=== PATIENT | female | born 1930 | race Caucasian/White ===

== ENCOUNTER → 2016-11-27 | Outpatient (CLI) | payer MEDICARE, OTHER ==
[~2016-11-27] MED LIST: ACIPHEX20 MG; ACTOPLUS MET 151 TA2 PO; ACTOS; ACTOS PLUS PO; ACTOS15 MG PO; ACYCLOVIR200 MG PO; ASPIRINEC PO; AZITHROMYCIN250 MG PO; CEPACOL SORE T1 EAC4 MM; CERTAGEN PO; CHROMAGEN FA1 UDCAP PO; CLONIDINE PO; CRESTOR; CRESTOR PO; CYMBALTA30 MG PO; DARVOCET-N 1001 TAB PO; DICLOFENAC; DICLOFENAC PO; DULOXETINE HCL60 MG PO; FERROUS SULFATE; FISH OIL PO; FLONASE16 GM; FUROSEMIDE40 MG PO; GLUCOTROL PO; GLYNASE; GLYNASE PO; HYDROCODON-ACE1 EAC5; HYDROCODON-ACE1 EAC5 PO; HYDROCODON-ACE1 EAC5 PO/SL; HYDROCODON-ACE1 EAC9 PO; HYDROXYZINE HCL25 M1 PO; JANUVIA50 MG PO; KLOR-CON PO; LANTUS100 U/ML SQ; LANTUS100 U/ML SUBQ; LASIX PO; LIPITOR PO; LISINOPRIL; LISINOPRIL PO; LISINOPRIL5 MG PO; LORTAB 7.5-5001 TAB PO; MAG-OXIDE400 MG PO; MEDROL4 MG/DOSE- PO; METFORMIN; METOPROLOL SUCC25 MG PO; MULTI-VITAMIN1 TAB PO; NEURONTIN300 MG PO; NORCO 5/325 TAB1 TAB; NOVOLOG100 U/ML SQ; OMEPRAZOLE20 M1 PO; OXYGEN NS; PERCOCET 5-3251 TAB PO; POTASSIUM CHLO10 ME1 PO; PREDNISONE PO; PRILOSEC PO; PROTONIX PO; ROBAXIN 750750 MG PO; ROBAXIN PO; SIMVASTATIN20 MG PO; VESICARE PO; ZETIA PO; ZOVIRAX200 M1 PO; ZYRTEC PO
== END | disposition home or self-care (01) ==
LOC: CRAD 09:19
DX: R13.14 Dysphagia, pharyngoesophageal phase (principal); E04.1 Nontoxic single thyroid nodule
CPT/HCPCS: 74230; 92611; G8996-GN; G8997-GN; G8998-GN

== ENCOUNTER 2017-01-03 12:08 | Emergency (ER) | payer MEDICARE, OTHER ==
--- NOTE | ~2017-01-03 | CR141 ---
[facility] A Service of [facility] RADIOLOGY TEXT RESULTS PATIENT: MIRZA JI LOCATION: SED : [birth year] UNIT #: [id number] AGE: [address]: Basim Gottlieb MD SEX: F ORDER DR: [id number] [place] [id number] P MR#: [id number] Acc #: [id number] NAME: MIRZA JI : 1930 SEX: F STUDY DATE/TIME: 01/03/2017 12:41 UNIT: SED ROOM: STUDY DESCRIPTION: CR Hand Min 3 Views Lt Attending Physician: Basim Gottlieb M.D. Ordering Physician: Basim Gottlieb M.D. Primary Care Physician: Josey Marie A.P.R.N. MEDICAL IMAGING REPORT This report is preliminary unless electronic signature is present. EXAM Left hand and wrist series 01/03/2017. HISTORY 86-year-old female in the ED complaining of left hand and wrist pain after a fall at home earlier this morning. TECHNIQUE 3-view left hand series was obtained along with a 3-view left wrist series. FINDINGS There is an acute, nondisplaced oblique fracture across the distal metaphysis of the ulna. No distal radius fracture is identified. No acute osseous abnormality involving the hand or carpal wrist. The images show advanced osteoarthritis with severe involvement of the first CMC joint and moderately severe involvement of multiple IP joints. IMPRESSION 1. Acute nondisplaced oblique fracture across the distal ulnar metaphysis. 2. No additional acute fractures identified involving the hand, carpal wrist or distal radius. 3. Advanced osteoarthritis as noted above. Dictated by... Amandeep Live M.D. THIS IS AN ELECTRONICALLY VERIFIED REPORT Amandeep Live M.D. at 01/03/2017 2:07 PM RGW/morena [facility] A Service of [facility] RADIOLOGY TEXT RESULTS PATIENT: MIRZA JI LOCATION: [facility] [place] : [birth year] UNIT #: [id number] AGE: [address]: Basim Gottlieb MD SEX: F ORDER DR: TD: 01/03/2017 13:12 JOB #: [id number] MEDICAL IMAGING REPORT Page 1 of 1
--- NOTE | ~2017-01-03 | CR281 ---
[facility] A Service of [facility] & [facility] RADIOLOGY TEXT RESULTS PATIENT: MIRZA JI LOCATION: SED : [birth year] UNIT #: [id number] AGE: [address]: Basim Gottlieb MD SEX: F ORDER DR: [id number] [address] [id number] P MR#: [id number] Acc #: [id number] NAME: MIRZA JI : 1930 SEX: F STUDY DATE/TIME: 01/03/2017 12:41 UNIT: SED ROOM: STUDY DESCRIPTION: CR Wrist Min 3 View Lt Attending Physician: Basim Gottlieb M.D. Ordering Physician: Basim Gottlieb M.D. Primary Care Physician: Frandy NicolePPaulette MEDICAL IMAGING REPORT This report is preliminary unless electronic signature is present. EXAM Left wrist series Please see left hand series for results. Dictated by... Amandeep Live M.D. THIS IS AN ELECTRONICALLY VERIFIED REPORT Amandeep Live M.D. at 01/03/2017 2:08 PM ELIUDW/celester TD: 01/03/2017 13:14 JOB #: [id number] MEDICAL IMAGING REPORT Page 1 of 1
== END 2017-01-03 13:27 | disposition home or self-care (01) ==
LOC: SED 12:08
DX: S52.602A Unspecified fracture of lower end of left ulna, initial encounter for closed fracture (principal); I10 Essential (primary) hypertension; E11.9 Type 2 diabetes mellitus without complications; J44.9 Chronic obstructive pulmonary disease, unspecified; Z87.891 Personal history of nicotine dependence; Z79.82 Long term (current) use of aspirin; Z79.899 Other long term (current) drug therapy; Z88.2 Allergy status to sulfonamides; Z88.8 Allergy status to other drugs, medicaments and biological substances; W01.0XXA Fall on same level from slipping, tripping and stumbling without subsequent striking against object, initial encounter
CPT/HCPCS: 29125; 73110; 73130; 99283